=== PATIENT | female | born 1975 | race Caucasian/White ===

== ENCOUNTER 2019-09-11 15:36 | Emergency (ER) | payer MEDICAID ==
[~2019-09-11] VITALS: Ht 160 cm; Wt 61.2 kg
[2019-09-11 16:08] VITALS: Ht 160 cm; Wt 61.2 kg
[2019-09-11 16:24] LABS: BASOPHIL % 0.5 % (0-2); PLATELET COUNT 261 x10^3mcL (130-400); RED CELL DISTRIBUTION WIDTH 12.9 % (11.5-14.5)
[2019-09-11 16:55] LABS: CALCIUM 8.1 mg/dL (8.5-10.1); CARBON DIOXIDE 26.8 mmol/L (21-32); CHLORIDE SERUM 103 mmol/L (98-107); CREATININE SERUM 0.9 mg/dL (0.6-1.0); GFR1 > 60 mL/min; GLUCOSE SERUM 114 mg/dL (74-106); SODIUM SERUM 141 mmol/L (136-145)
[2019-09-11 17:00] LABS: ALKALINE PHOSPHATASE 176 U/L (46-116); ALT/SGPT 46 U/L (14-59); AST/SGOT 54 U/L (15-37); BILIRUBIN TOTAL 0.71 mg/dL (0.20-1.00); LIPASE 72 IU/L (73-393)
[2019-09-11 17:02] LABS: UA SPECIFIC GRAVITY 1.025 (1.005-1.035); microscopic required? YES; urine erythrocyte 2+ (NEGATIVE)
[2019-09-11 17:14] LABS: ALBUMIN 3.2 g/dL (3.4-5.0); TOTAL PROTEIN, SERUM 7.4 g/dL (6.4-8.2)
[2019-09-11 20:30] VITALS: BP 115/70
== END 2019-09-11 20:30 | disposition home or self-care (01) ==
LOC: ED 15:36
PROVIDERS: Emergency Medicine
DX: N20.0 Calculus of kidney (principal); E87.6 Hypokalemia; Z98.890 Other specified postprocedural states
CPT/HCPCS: J0696; J1885; J3010; J7030

== ENCOUNTER 2019-10-02 22:42 | Emergency (ER) | payer MEDICAID ==
[~2019-10-02] VITALS: Ht 160 cm; Wt 81.6 kg
[2019-10-02 23:22] VITALS: Ht 160 cm; Wt 81.6 kg
[2019-10-03 00:16] LABS: microscopic required? YES; urine erythrocyte 3+ (NEGATIVE)
[2019-10-03 01:03] LABS: BASOPHIL % 0.9 % (0-2); PLATELET COUNT 293 x10^3mcL (130-400); RED CELL DISTRIBUTION WIDTH 11.6 % (11.5-14.5)
[2019-10-03 01:13] LABS: CALCIUM 7.9 mg/dL (8.5-10.1); CARBON DIOXIDE 23.7 mmol/L (21-32); CHLORIDE SERUM 102 mmol/L (98-107); CREATININE SERUM 0.9 mg/dL (0.6-1.0); GFR1 > 60 mL/min; GLUCOSE SERUM 113 mg/dL (74-106); POTASSIUM SERUM 3.5 mmol/L (3.5-5.1); SODIUM SERUM 136 mmol/L (136-145)
[2019-10-03 01:17] LABS: ALKALINE PHOSPHATASE 218 U/L (46-116); ALT/SGPT 46 U/L (14-59); AMYLASE 51 U/L (25-115); AST/SGOT 30 U/L (15-37); BILIRUBIN TOTAL 0.59 mg/dL (0.20-1.00); LIPASE 95 IU/L (73-393); TOTAL PROTEIN, SERUM 7.4 g/dL (6.4-8.2)
[2019-10-03 01:22] LABS: ALBUMIN 2.4 g/dL (3.4-5.0)
[2019-10-03 03:22] VITALS: BP 101/53
== END 2019-10-03 03:22 | disposition home or self-care (01) ==
LOC: ED 22:42
PROVIDERS: Emergency Medicine
DX: N12 Tubulo-interstitial nephritis, not specified as acute or chronic (principal); Z98.890 Other specified postprocedural states
CPT/HCPCS: J0696; J1885; J7030; J7060

== ENCOUNTER 2019-10-05 09:43 | Inpatient (IN) | payer MEDICAID ==
[~2019-10-05] VITALS: Ht 162.6 cm; Wt 66.8 kg
--- NOTE | 2019-10-05 12:12 | NUR ---
MSE COMPLETED BY DR ZAMBRANO
[2019-10-05 12:43] LABS: CALCIUM 8.9 mg/dL (8.5-10.1); CARBON DIOXIDE 27.6 mmol/L (21-32); CHLORIDE SERUM 100 mmol/L (98-107); GFR1 > 60 mL/min; GLUCOSE SERUM 101 mg/dL (74-106); POTASSIUM SERUM 4.2 mmol/L (3.5-5.1); SODIUM SERUM 136 mmol/L (136-145)
[2019-10-05 12:47] LABS: BASOPHIL % 0.5 % (0-2); PLATELET COUNT 359 x10^3mcL (130-400)
[2019-10-05 13:22] LABS: MAGNESIUM 2.6 mg/dL (1.8-2.4); PHOSPHOROUS 3.7 mg/dL (2.5-4.9)
[2019-10-05 13:24] LABS: CHOLESTEROL/HDL RATIO 7.5
[2019-10-05 13:34] LABS: T3 TOTAL 1.03 ng/mL
[2019-10-05 14:09] LABS: FREE T4 1.32 ng/dL (0.76-1.46); FREE THYROXINE INDEX 3.1 ug/dL (1.4-4.5); T4(THYROXINE) 9.4 ug/dL (4.7-13.3)
--- NOTE | 2019-10-05 14:14 | NUR ---
REPORT GIVEN TO CHAD WISEMAN RESUMING CARE OF PT IN MED SURG FLOOR
--- NOTE | 2019-10-05 14:26 | NUR ---
PT TRANSPORTED TO MED SURG FLOOR VIA [facility]. CHAD WISEMAN RESUMING CARE OF PT
--- NOTE | 2019-10-05 14:29 | NUR ---
RECEIVED PT FROM ED VIA WHEELCHAIR, PT STATED THAT SHE WAS CALLED IN FOR BLOOD WORKS. PT IS AAOX4. STATED THAT SHE HAS 6/10 HEADACHE. DENIES DIZZINESS. ABLE TO FOLLOW COMMANDS. NO SOB NOTED, LUNG SOUNDS CTA, O2 SAT=97%, RA. STATED THAT SHE HAS 4/10 LEFT SIDED CHEST PAIN DESCRIBED PULSATING, PT DENIES ANXIETY AT THIS TIME. NO NUMBNESS/TINGLING SENSATION NOTED. PT STATED THAT SHE HAS 5/10 ABDOMINAL PAIN DESCRIBED BURNING. C/O BLOATING, ABLE TO PASS GAS, ABDOMEN IS SOFT AND ROUND, BOWEL SOUNDS ACTIVE. PT STATED THAT SHE URINATES 1-2/DAY, BLADDER IS SOFT, NON-DISTENDED. IV SITE PATENT AND INTACT. AP (MRI TECH) AT BEDSIDE, DISCUSSED THE PLAN OF CARE TO THE PATIENT AND PT'S SON AND THEY VERBALIZED UNDERSTANDING. SIDE RAILS UPX2. CALL LIGHT ON REACH. ENDORSED TO PRIMARY NURSE SHAMEKA FOR CONTINUITY OF CARE
[2019-10-05 14:54] VITALS: BP 131/67
[2019-10-05 15:10] VITALS: Ht 162.6 cm; Wt 66.8 kg
--- NOTE | 2019-10-05 15:34 | NUR ---
PT SITTING UP IN BED. NO ACUTE RESP DISTRESS NOTED. PT C/O PAIN 6/10 PAIN OF LLQ ABDOMEN SHARP. MEDICATED PER EMAR. BLADDER SCAN DONE NOTED 158 ML OF URINE, AP BROWN MADE AWARE, NO NEW ORDERS RECEIVED. FLU VACCINE ADMINISTERED TO LEFT ARM. IV TO LAC FLUSHED WELL, NO REDNESS OR SWELLING NOTED, IV FLUIDS INFUSING ORDERED. SPECIMEN CUP FOR URINE CX LEFT WITH PT. STRAINER PLACED IN BATHROOM. WILL CONTINUE TO MONITOR. FAMILY AT BEDSIDE. CALL LIGHT IN REACH. BED IN LOWEST POSITION.
[2019-10-05 16:32] VITALS: BP 115/68
[2019-10-05 16:41] LABS: UA SPECIFIC GRAVITY <=1.005 (1.005-1.035); microscopic required? YES; urine erythrocyte 2+ (NEGATIVE)
--- NOTE | 2019-10-05 19:25 | NUR ---
RECEIVED PT LAYING IN BED, SON AT BEDSIDE. NO ACUTE DISTRESS OBSERVED. DENIES PAIN OR DISCOMFORT AT THIS TIME. AA/OX4, ABLE TO MAKE NEEDS KNOWN, SPEECH CLEAR AND APPROPRIATE. MED-SURG, NO TELE, NO CP. PULSES PALPABLE. BREATHING ON RA, EVEN AND UNLABORED, NO SOB OR DYSPNEA. ABD ROUND AND SOFT WITH ACTIVE BOWEL SOUNDS, NO N/V/D, ADMITS TO ABD BLOATING. VOIDS URINE FREELY, C/O URINARY URGENCY. AMBULATORY AND ABLE TO REPOSITION SELF IN BED. IV TO LAC IN PLACE, DRY, PATENT, INTACT, NO S&S PHLEBITIS OR INFILTRATION NOTED. COMFORT AND SAFETY MEASURES IN PLACE. ALL NEEDS ASSESSED AND ATTENDED TO. CALL LIGHT WITHIN REACH. WILL CONTINUE TO MONITOR
[2019-10-05 20:37] VITALS: BP 116/69
--- NOTE | 2019-10-06 05:41 | NUR ---
NO SIGNIFICANT CHANGES TO REPORT, PT COMPLIED WITH NURSING CARE THROUGHOUT THE SHIFT WITH NO ACUTE EVENTS OVERNIGHT. NO ACUTE DISTRESS OBSERVED AT THIS TIME, PT LAYING IN BED, BREATHING EVEN AND UNLABORED. COMFORT AND SAFETY MEASURES MAINTAINED. ALL NEEDS ASSESSED AND ATTENDED TO. CALL LIGHT WITHIN REACH. WILL CONTINUE TO MONITOR AND ENDORSE CARE TO DAY SHIFT NURSE
[2019-10-06 06:18] VITALS: BP 117/56
[2019-10-06 06:39] LABS: BASOPHIL % 0.3 % (0-2); PLATELET COUNT 345 x10^3mcL (130-400); RED CELL DISTRIBUTION WIDTH 12.8 % (11.5-14.5)
[2019-10-06 07:02] LABS: CALCIUM 8.4 mg/dL (8.5-10.1); CARBON DIOXIDE 25.9 mmol/L (21-32); CHLORIDE SERUM 105 mmol/L (98-107); GFR1 > 60 mL/min; GLUCOSE SERUM 99 mg/dL (74-106); POTASSIUM SERUM 4.6 mmol/L (3.5-5.1); SODIUM SERUM 140 mmol/L (136-145)
--- NOTE | 2019-10-06 07:25 | NUR ---
PATIENT IN BED, SLEEPING. EASILY AROUSABLE. NO ACUTE RESP DISTRESS NOTED. NO COMPLAINTS OF PAIN AT THIS TIME. IV INTACT AND PATENT. NO ERYTHEMA/ SWELLING NOTED. SAFETY PRECAUTION IN PLACE. CALL LIGHT WITHIN REACH. WILL CONTINUE TO MONITOR.
[2019-10-06 08:44] VITALS: BP 109/53
--- NOTE | 2019-10-06 09:31 | NUR ---
PT IN BED, STABLE. NO ACUTE RESP DISTRESS NOTED. REMAINS ON ROOM AIR. NO C/O PAIN AT THIS TIME. IV INTACT AND PATENT. NO ERYTHEMA/SWELLING NOTED. SAFETY PRECAUTION IN PLACE. CALL LIGHT WITHIN REACH. WILL CONTINUE TO MONITOR.
--- NOTE | 2019-10-06 12:42 | NUR ---
PT IN BED, EATING LUNCH. NO ACUTE RESP DISTRESS NOTED. REMAINS ON ROOM AIR. NO C/O PAIN AT THIS TIME. STRAINED URINE, NO DEBRIS/STONES NOTED. URINE IS CLEAR AND YELLOW. IV INTACT AND PATENT, ANTIBIOTICS RUNNING AT THIS TIME. TOLERATING WELL. NO ADVERSE REACTIONS NOTED. SAFETY PRECAUTION IN PLACE. CALL LIGHT WITHIN REACH. FAMILY AT BEDSIDE. WILL CONTINUE TO MONITOR.
[2019-10-06 12:45] VITALS: BP 95/51
--- NOTE | 2019-10-06 14:32 | NUR ---
PT IN BED, SLEEPING. NO ACUTE RESP DISTRESS NOTED. NO C/O PAIN AT THIS TIME. FAMILY AT BEDSIDE. IV INTACT AND PATENT. SAFETY PRECAUTION IN PLACE. CALL LIGHT WITHIN REACH. WILL CONTINUE TO MONITOR. REMAINS ON ISOLATION FOR MDRO AND E.COLI IN URINE.
--- NOTE | 2019-10-06 15:28 | NUR ---
Discount pharmacy card and list to low cost medical clinics given to patient by Arlin.
--- NOTE | 2019-10-06 16:15 | NUR ---
PT IN BED, STABLE. NO ACUTE RESP DISTRESS NOTED. NO C/O PAIN AT THIS TIME. DISCUSSED PLAN OF CARE WITH PT. PT VERBALIZED UNDERSTANDING. IV INTACT AND PATENT. NO ERYTHEMA/SWELLING NOTED. SAFETY PRECAUTION IN PLACE. CALL LIGHT WITHIN REACH. WILL CONTINUE TO MONITOR.
--- NOTE | 2019-10-06 17:37 | NUR ---
PT IN BED, EATING DINNER. NO RESP DISTRESS NOTED. NO C/O PAIN AT THIS TIME. IV INFUSING WELL, NO ERYTHEMA/SWELLING NOTED. SAFETY PRECAUTION IN PLACE. CALL LIGHT WITHIN REACH. WILL CONTINUE TO MONITOR.
[2019-10-06 17:59] VITALS: BP 111/58
--- NOTE | 2019-10-06 18:31 | NUR ---
PT IN BED, STABLE. NO ACUTE RESP DISTRESS NOTED. NO C/O PAIN AT THIS TIME. PT VERBALIZED UNDERSTANDING. IV INTACT AND PATENT. NO ERYTHEMA/SWELLING NOTED. SAFETY PRECAUTION IN PLACE. STRAINED URINE, NO DEBRIS/STONES NOTED. URINE YELLOW AND CLEAR. CALL LIGHT WITHIN REACH. WILL ENDORSE CARE TO RISK AND COMPLIANCE ANALYTICS DIRECTOR NURSE.
[2019-10-06 20:52] VITALS: BP 129/72
--- NOTE | 2019-10-06 20:55 | NUR ---
Awake and verbally responsive. No respiratory distress noted on room air. Denies n/v. Medicated as ordered for c/o abd'l.pain. [place] 1 tab given. Will cont.to monitor. Call light within reach.
--- NOTE | 2019-10-07 03:54 | NUR ---
Afebrile. No significant change in condition noted. Denies dysuria or hematuria. Pain controlled. No n/v. Ambulated. In no apparent distress. Contact isolation MRSA/E.coli urine, proper use of PPE and good hand hygiene observed.
[2019-10-07 05:54] VITALS: BP 115/62
--- NOTE | 2019-10-07 07:35 | NUR ---
RECEIVED PT IN BED. ASSESSED AND DOCUMENTED. DENIES ANY PAIN. STABLE. SAFTEY PRECAUTIONS ARE IN PLACE. WILL MONITOR.
[2019-10-07 09:05] VITALS: BP 121/64
[2019-10-07] MEDS ORDERED: APAP/HYDROCODON1 T13 PO (12:13)
[2019-10-07] MEDS ORDERED: CIPRO500 MG PO (12:13)
[2019-10-07 13:05] VITALS: BP 123/58
--- NOTE | 2019-10-07 13:10 | NUR ---
PT TOLERATING DIET WELL, INFORMED PT SHE HAS BEEN DISCHARGED. PT SAID SHE DOESNOT HAVE RIDE AVAILABLE UNTIL 8 PM, INFORMED CHARGE NURSE ABOUT THAT. PT IS STABLE, DENIES ANY PAIN.
[2019-10-07 14:37] VITALS: BP 123/58
[2019-10-07 17:45] VITALS: BP 136/77
--- NOTE | 2019-10-07 18:45 | NUR ---
DISCHARGE INSTRUCTIONS GIVEN. PRESCRIPTIONS SENT TO PT'S PHARMACY BY HAND CULTIVATOR. DC PAPER AND PB SIGNED. IV REMOVED AND DRESSING APPLIED. WAITING FOR PT FAMILY TO COME AND APPLIANCE REPAIR TECHNICIAN PT, WILL ENDORSE TO JACKAROO NURSE.
--- NOTE | 2019-10-07 19:00 | NUR ---
PT REMAINS STABLE. STILL WAITING FOR RIDE. DENIES ANY PAIN. GAVE REPORT TO CLINICAL NURSE MANAGER NURSE.
--- NOTE | 2019-10-07 19:37 | NUR ---
picked up the pt. Assisted via w/c to discharge area. In no apparent distress.
== END 2019-10-07 19:25 | disposition home or self-care (01) | DRG 720 ==
LOC: ED 09:43 → MU 12:53
PROVIDERS: Emergency Medicine; ADMIT Internal Medicine
DX: A41.51 Sepsis due to Escherichia coli [E. coli] (principal); N13.0 Hydronephrosis with ureteropelvic junction obstruction; N10 Acute pyelonephritis; B96.22 Other specified Shiga toxin-producing Escherichia coli [E. coli] [STEC] as the cause of diseases classified elsewhere; Z16.24 Resistance to multiple antibiotics
CPT/HCPCS: 84439; 90658; G0378; J0696; J1885; J2405; J7030; J7060; J7070